=== PATIENT | female | born 1955 | race Caucasian/White ===

== ENCOUNTER 2019-09-18 19:36 | Emergency (ER) | payer MEDICARE, MEDICAID ==
[~2019-09-18] VITALS: Ht 160 cm; Wt 96.2 kg
[2019-09-18] MEDS ORDERED: AMOXICILLI400 MG/5 M PO (20:01)
[2019-09-18 20:40] VITALS: BP 127/57
== END 2019-09-18 20:40 | disposition home or self-care (01) ==
LOC: M.ERS 19:36
DX: K04.7 Periapical abscess without sinus (principal); M19.90 Unspecified osteoarthritis, unspecified site; E11.9 Type 2 diabetes mellitus without complications; K21.9 Gastro-esophageal reflux disease without esophagitis; G47.39 Other sleep apnea; E78.00 Pure hypercholesterolemia, unspecified; J45.998 Other asthma; F32.9 Major depressive disorder, single episode, unspecified; Z90.710 Acquired absence of both cervix and uterus; Z91.041 Radiographic dye allergy status; Z88.8 Allergy status to other drugs, medicaments and biological substances; Z88.6 Allergy status to analgesic agent

== ENCOUNTER 2020-03-31 16:02 | Emergency (ER) | payer MEDICARE, MEDICAID ==
[~2020-03-31] VITALS: Ht 160 cm; Wt 96.2 kg
[~2020-03-31 16:02] MED LIST: AMOXICILLI400 MG/5 M PO
[2020-03-31 17:34] LABS: INFLUENZA A ANTIGEN Negative (Negative); INFLUENZA B ANTIGEN Negative (Negative)
[2020-03-31 17:56] VITALS: BP 135/63
== END 2020-03-31 17:57 | disposition home or self-care (01) ==
LOC: M.ERS 16:02
PROVIDERS: Physician Assistant
DX: B34.9 Viral infection, unspecified (principal); Z20.828 Contact with and (suspected) exposure to other viral communicable diseases; G47.30 Sleep apnea, unspecified; M79.7 Fibromyalgia; J44.9 Chronic obstructive pulmonary disease, unspecified; G25.81 Restless legs syndrome; K21.9 Gastro-esophageal reflux disease without esophagitis; E78.00 Pure hypercholesterolemia, unspecified; M19.90 Unspecified osteoarthritis, unspecified site; Z90.710 Acquired absence of both cervix and uterus; Z91.041 Radiographic dye allergy status; Z88.5 Allergy status to narcotic agent; Z88.6 Allergy status to analgesic agent; Z88.8 Allergy status to other drugs, medicaments and biological substances; Z90.49 Acquired absence of other specified parts of digestive tract; Z98.51 Tubal ligation status